=== PATIENT | female | born 1995 | race African-American/Black ===

== ENCOUNTER 2016-12-14 05:21 | Inpatient (IN) | payer OTHER ==
[~2016-12-14] VITALS: Ht 160 cm; Wt 75.9 kg
[2016-12-14] VITALS (9 sets, daily range): BP systolic 91–121; BP diastolic 52–64
[~2016-12-14 05:21] MED LIST: AMPICILLIN TRI500 MG PO; CEFDINIR300 MG PO; CEFPODOXIME PR100 MG PO; CIPRO HC OTIC S10 ML BOTH EARS; DOCUSATE SODIU100 MG PO; ENDOCET 5-3251 EACH PO; FERROUS SULFAT325 MG PO; IBUPROFEN800 MG PO; MACROBID100 MG PO; METRONIDAZOLE500 MG PO; Motrin PO; ONDANSETRON ODT4 MG PO; PRENATAL VITAM1 EAC6 PO; Percocet 5/325,Endoc PO
[2016-12-14 06:53] LABS: EOSINOPHIL (%) 1.9 % (0-5); EOSINOPHIL COUNT 0.3 K/uL (0-0.3); HEMATOCRIT 27.7 % (36.0-46.0); IMMATURE GRANULOCYTE (%) 0.8 % (0.0-0.7); IMMATURE GRANULOCYTE COUNT 0.1 K/uL; LYMPHOCYTE COUNT 3.6 K/uL (1.0-2.8); MCH 24.3 PG (29.0-34.0); MCHC 32.1 G/DL (30.0-36.0); MCV 75.7 FL (83-99); MEAN PLAT.VOLUME 10.5 uM^3 (9.5-12.4); MONOCYTE (%) 6.7 % (3-12); MONOCYTE COUNT 0.9 K/uL (0-0.8); NEUTROPHIL (%) 64.5 % (45-76); PLATELET COUNT 336 K/uL (156-360); RBC DIS.WIDTH-CV 15.6 % (11.8-14.6); RBC DIS.WIDTH-SD 42.5 % (39-53); RED BLOOD COUNT 3.66 M/uL (3.80-5.20)
[2016-12-14 10:03] LABS: AMPHETAMINES QUANT VALUE 0 NG/ML; BARBITUATES QUANT VALUE 0 NG/ML; BENZODIAZEPINES QUANT VALUE 0 NG/ML; BENZODIAZEPINES, URINE SCREEN Negative (200 ng/mL); MARIJUANA QUANT VALUE 0 NG/ML; OPIATES QUANTITATIVE VALUE 0 NG/ML; PHENCYCLIDINE QUANT VALUE 0 NG/ML
[2016-12-15 03:34] VITALS: BP 108/62
[2016-12-15 07:07] VITALS: BP 118/79
[2016-12-15 07:21] LABS: EOSINOPHIL (%) 0.9 % (0-5); EOSINOPHIL COUNT 0.1 K/uL (0-0.3); HEMATOCRIT 30.9 % (36.0-46.0); IMMATURE GRANULOCYTE (%) 0.5 % (0.0-0.7); IMMATURE GRANULOCYTE COUNT 0.1 K/uL; LYMPHOCYTE COUNT 2.2 K/uL (1.0-2.8); MCH 23.9 PG (29.0-34.0); MCHC 31.1 G/DL (30.0-36.0); MCV 77.1 FL (83-99); MEAN PLAT.VOLUME 10.6 uM^3 (9.5-12.4); MONOCYTE (%) 6.7 % (3-12); NEUTROPHIL (%) 77.6 % (45-76); PLATELET COUNT 350 K/uL (156-360); RBC DIS.WIDTH-CV 15.6 % (11.8-14.6); RED BLOOD COUNT 4.01 M/uL (3.80-5.20); WHITE BLOOD COUNT 15.4 K/uL (4.1-10.2)
[2016-12-15 10:27] VITALS: BP 102/78
[2016-12-15 14:50] VITALS: BP 115/62
[2016-12-15 19:10] VITALS: BP 126/79
[2016-12-15 22:46] VITALS: BP 116/52
[2016-12-16 03:07] VITALS: BP 122/67
[2016-12-16 07:11] VITALS: BP 123/68
[2016-12-16 15:07] VITALS: BP 142/75
[2016-12-16 23:19] VITALS: BP 140/79
[2016-12-17 07:20] VITALS: BP 123/77
[2016-12-17] MEDS ORDERED: CHROMAGEN,1 CAPSULE PO (12:02)
[2016-12-17] MEDS ORDERED: ENDOCET 5-3251 EACH PO (12:02)
[2016-12-17] MEDS ORDERED: IBUPROFEN800 MG PO (12:02)
[2016-12-17 15:05] VITALS: BP 142/78
== END 2016-12-17 15:40 | disposition home or self-care (01) | DRG 766 ==
LOC: 2WEST 05:21 → 2SOUTH 10:45 → 2WEST 12-17 15:40
PROVIDERS: Obstetrics & Gynecology
PROC: 10D00Z1 Extraction of Products of Conception, Low, Open Approach (ICD-10-PCS; principal; 2016-12-14)
DX: O99.02 Anemia complicating childbirth (principal); D50.9 Iron deficiency anemia, unspecified; O99.334 Smoking (tobacco) complicating childbirth; F17.200 Nicotine dependence, unspecified, uncomplicated; Z3A.39 39 weeks gestation of pregnancy; Z37.0 Single live birth; O34.211 Maternal care for low transverse scar from previous cesarean delivery; Z87.440 Personal history of urinary (tract) infections; R87.612 Low grade squamous intraepithelial lesion on cytologic smear of cervix (LGSIL)
CPT/HCPCS: 80306 90; 85025; 86900; 86901; J0690; J1050; J1170; J1200; J2274; J2300; J2405; J7120

== ENCOUNTER 2017-02-22 21:21 | Emergency (ER) | payer OTHER ==
[~2017-02-22] VITALS: Ht 160 cm; Wt 76.3 kg
[~2017-02-22 21:21] MED LIST changes: +CHROMAGEN,1 CAPSULE PO
[2017-02-22 23:47] LABS: ADD MIUA? YES; BILIRUBIN NEGATIVE; BLOOD NEGATIVE; COLOR YELLOW ((YELLOW)); GLUCOSE (STRIP) NEGATIVE; KETONES NEGATIVE; LEUKOCYTES NEGATIVE; NITRITE NEGATIVE; PROTEIN (STRIP) NEGATIVE; SPECIFIC GRAVITY 1.025 (1.000-1.030)
[2017-02-23] LABS: BACTERIA RARE /HPF; EPITHELIAL CELLS 1+ /HPF; MUCUS TRACE /LPF; RED BLOOD CELLS 0-5 /HPF (0-5); WHITE BLOOD CELLS 0-5 /HPF (0-5)
[2017-02-23 00:37] LABS: INTERNAL CONTROL VALID? YES
[2017-02-23] MEDS ORDERED: NAPROXEN500 MG PO (02:01)
[2017-02-23 02:08] VITALS: BP 111/65
== END 2017-02-23 02:11 | disposition home or self-care (01) ==
LOC: EME 21:21 → EXP 21:21
DX: M54.5 Low back pain (principal); F17.200 Nicotine dependence, unspecified, uncomplicated
CPT/HCPCS: 74176; 81003; 84703; 99281; 99284